=== PATIENT | female | born 1990 | race Hispanic/Latino ===

== ENCOUNTER 2017-06-17 20:13 | Emergency (ER) | payer BC, OTHER ==
[~2017-06-17] VITALS: Ht 162.6 cm; Wt 62.1 kg
[2017-06-17 21:11] LABS: BILIRUBIN,URINE NEGATIVE (NEGATIVE); CLARITY,URINE CLEAR (CLEAR); COLOR,URINE YELLOW (YELLOW); KETONES,URINE NEGATIVE (NEGATIVE); LEUKOCYTE ESTERASE ,URINE 2+ (NEGATIVE); NITRITE,URINE NEGATIVE (NEGATIVE); PROTEIN,URINE DIPSTICK NEGATIVE (NEGATIVE); URINE UROBILINOGEN 0.2 mg/dL (0.2 - 1)
[2017-06-17 21:13] LABS: PREGNANCY TEST, URINE NEGATIVE (NEGATIVE)
--- NOTE | 2017-06-17 21:37 | Diagnostic Imaging Report ---
EXAMINATION: CHEST 2 VIEWS INDICATION: Shortness of breath for 5 days, history of breast cancer on remission since December 2016 COMPARISON: None FINDINGS: TUBES and LINES: None. LUNGS: Lungs are well inflated. Lungs are clear. There is no evidence of pneumonia or pulmonary edema. PLEURA: No pleural effusion or pneumothorax. HEART AND MEDIASTINUM: The cardiomediastinal silhouette is unremarkable. BONES AND SOFT TISSUES: No acute osseous lesion. Multiple surgical clips in the right breast and right axilla compatible with prior lumpectomy and lymph node dissection. UPPER ABDOMEN: No free air under the diaphragm. IMPRESSION: No acute thoracic abnormality. Signed by: Dr. William Whittington M.D. on 06/17/2017 9:33 PM
[2017-06-17 21:39] LABS: BACTERIA,URINE FEW /HPF; EPITHELIAL CELLS,URINE MODERATE /LPF; RBC,URINE 0-5 /HPF (0-5)
== END 2017-06-17 22:40 | disposition home or self-care (01) ==
LOC: ER 20:13
DX: R05 Cough (principal); R06.02 Shortness of breath; J20.9 Acute bronchitis, unspecified; N30.90 Cystitis, unspecified without hematuria
CPT/HCPCS: 71046; 81001; 81025; 93005; 99283

== ENCOUNTER 2021-09-12 15:33 | Emergency (ER) | payer OTHER ==
[~2021-09-12] VITALS: Ht 162.6 cm; Wt 62.1 kg
== END 2021-09-12 17:10 | disposition home or self-care (01) ==
LOC: ER 16:02
DX: O26.91 Pregnancy related conditions, unspecified, first trimester (principal); R00.2 Palpitations; R06.02 Shortness of breath; Z85.3 Personal history of malignant neoplasm of breast
CPT/HCPCS: 93005; 99284